=== PATIENT | female | born 1970 | race Two or more races ===

== ENCOUNTER 2020-01-05 16:03 | Emergency (ER) | payer OTHER, SELFPAY ==
--- NOTE | 2020-01-05 17:15 | ED.WOUNDLAC ---
HPI - Wound/Laceration General Chief Complaint: Wound/Laceration Stated Complaint: laceration Time Seen by Provider: 01/05/20 17:15 Source: patient Mode of arrival: ambulatory History of Present Illness HPI narrative: 49-year-old female presenting to ED complaining of laceration to left palm s/p cutting bananas around 1:00 p.m. today. Reports knife slipped. Tetanus out of date. Denies injury to other area, numbness, tingling, weakness, decreased ROM. Reports knife was brand new, not contaminated Onset (ago): hour(s) Related Data Allergies Allergy/AdvReac Type Severity Reaction Status Date / Time No Known Allergies Allergy Verified 12/15/19 09:08 Review of Systems Review of Systems: Constitutional: No Weight loss, No Fever, No Chills Musculoskeletal: No joint pain, No Myalgias, No Joint Swelling Skin:+laceration, No rash Neuro: No Weakness, No Numbness, No Paresthesias Yes all other systems are reviewed and are negative [facility] Social History Social History Advance Directives: No Advance Directives Information Provided: No Physical Exam Const: General: cooperative and healthy appearing Orientation/consciousness: patient oriented x3 Limitations: no limitations HENMT: Head: Yes normal to inspection Ears: hearing grossly normal bilaterally General nose exam: Normal external nose present Face and sinus: Yes normal facial exam Eyes: General: appearance normal, both eyes and all related structures EOM: EOMs intact bilaterally Neck: Neck: Yes normal visual inspection Resp: Effort & Inspection: normal respiratory effort Cardio: Peripheral pulses: radial pulses present Skin: Other: 1.5 cm superficial laceration noted to left palm at 5th digit MCP. No visible tendon/ligament. FROM intact to all digits, hand, and wrist. Finger to thumb opposition intact. Sensation intact to light touch. Cap refill WNL Neuro: General: patient oriented x3 Gait exam (Neuro): Normal gait present Extrem: General: Yes normal to inspection Procedures Laceration Laceration 1: Site: hand Side (If applicable): left Size (cm): 1.5 Description: linear Depth: simple, single layer Local Anesthetic: lidocaine 1% Amount of anesthesia used (mL): 2 Pre-repair: wound explored and irrigated extensively Skin layer closed with: nylon Size (cm): 5-0 Number of sutures: 4 Technique: simple, interrupted MDM - Wound/Laceration MDM Narrative Medical decision making narrative: Will suture laceration and update tetanus Discharge Plan Discharge Clinical Impression: Laceration Patient Disposition: Home, Self-Care Instructions: Laceration (ED) Additional Instructions: You had stitches placed today in the ED, YOU NEED TO RETURN IN 7-10 DAYS TO HAVE THEM TAKEN OUT Keep area dry and clean DO NOT GET WET FOR 24 HOURS AFTER 24 HOURS YOU MAY GET WET, BUT ONLY PAT DRY, DO NOT SCRUB IF AREA BEGINS TO LOOK INFECTED, IS RED, THERE IS DRAINAGE, YOU HAVE FEVER, OR PAIN BECOMES UNBEARABLE RETURN TO THE ED SOONER You can apply bacitracin or Neosporin on site at home Referrals: Dee Fuentes PA [Emergency Midlevel Provider] - 10 days (Return to the emergency department in 7-10 days to have your stitches taken out)
[2020-01-05] MEDS: Lidocaine HCl 1 % MPF 5 ML VIAL SUBCUT (18:08)
[2020-01-05 18:12] VITALS: BP 106/69; PULSE 95; RESP 16; TEMP 36.5; O2SAT 95; BMI 25.9
== END 2020-01-05 18:18 | disposition home or self-care (01) ==
PROVIDERS: Emergency Provider Internal Medicine; PCP Internal Medicine
DX: S61.412A Laceration without foreign body of left hand, initial encounter (principal); S60.512A Abrasion of left hand, initial encounter; M79.642 Pain in left hand; W26.0XXA Contact with knife, initial encounter; Y93.9 Activity, unspecified; Y92.000 Kitchen of unspecified non-institutional (private) residence as the place of occurrence of the external cause; Y99.9 Unspecified external cause status; Z23 Encounter for immunization
CPT/HCPCS: 12001; 90471; 99283; 99284

== ENCOUNTER 2020-01-15 08:30 | Emergency (ER) | payer OTHER, SELFPAY ==
[2020-01-15 09:05] VITALS: BP 106/81; PULSE 68; RESP 16; TEMP 36.3; O2SAT 98; BMI 17.2
--- NOTE | 2020-01-15 09:28 | ED_ITS ---
HPI - Wound/Laceration General Chief Complaint: Wound/Laceration Stated Complaint: suture removal Time Seen by Provider: 01/15/20 09:28 History of Present Illness HPI narrative: Patient presents for suture removal from left hand laceration that was sewed 1 week ago, no complaints no redness no swelling no discharge from wound no pain no fever Related Data Allergies Allergy/AdvReac Type Severity Reaction Status Date / Time No Known Allergies Allergy Verified 12/15/19 09:08 Review of Systems Review of Systems: No fever no chills no redness no swelling no numbness no weakness Yes all other systems are reviewed and are negative [facility] Past Medical History Source: nursing notes reviewed Medical History (Updated 01/15/20 @ 09:29 by NASH Rosales) Asthma Epilepsy Social History Social History Smoking Status: Never smoker Advance Directives: No Advance Directives Information Provided: Yes Physical Exam Vital Signs: Vital Signs: Last Vital Signs Temp 97.3 F 01/15/20 09:05 Pulse 68 01/15/20 09:05 Resp 16 01/15/20 09:05 BP 106/81 01/15/20 09:05 Pulse Ox 98 01/15/20 09:05 Body Mass Index 17.2 General appearance a no x3 comfortable no distress Neck is supple Respiratory no respiratory distress Extremities full range of motion x4 Left hand has sutures in place with no redness no swelling no discharge from the wound no sign of infection, neurovascular intact distal with full range of motion no tendon impairment Course Course Course Narrative: Sutures in left hand are removed with no problem no wound dehiscence Discharge Plan Discharge Clinical Impression: Encounter for removal of sutures Patient Disposition: Home, Self-Care Interventions: ED Discharge Assessment Last Done: 01/15/20 09:38 Discharge Date/Time: 01/15/20 09:38
== END 2020-01-15 09:38 | disposition home or self-care (01) ==
PROVIDERS: Emergency Provider Emergency Medicine; PCP Internal Medicine
DX: Z48.02 Encounter for removal of sutures (principal)
CPT/HCPCS: 99283

== ENCOUNTER 2020-07-05 10:28 | Outpatient (REF) | payer OTHER, SELFPAY ==
--- NOTE | ~2020-07-05 | MM_ITS ---
EXAMINATION: MM SCREENING DIGITAL BREAST TOMOSYNTHESIS, BILATERAL CLINICAL INFORMATION: Screening. Asymptomatic. The lifetime risk of breast cancer based on the Tyrer-Cuzick Model is 7%. COMPARISON: Mammography: 04/27/2019, 04/25/2018, 04/12/2017, 03/16/2016 TECHNIQUE: Digital breast tomosynthesis is performed in both the craniocaudal and mediolateral oblique views along with computer-aided detection (CAD). Synthesized 2D images are generated from the tomosynthesis. FINDINGS: The breasts are heterogeneously dense, which may obscure small masses (ACR BI-RADS breast composition Category c). There are no significant masses, abnormal calcifications, or other abnormalities. Parenchymal pattern is similar to prior studies. No developing density. Skin contours are smooth. No significant changes. MM/MM tomosynthesis screening BI IMPRESSION: No mammographic evidence of malignancy. ASSESSMENT: BI-RADS 1: Negative RECOMMENDATION: Routine annual mammography screening. This patient's information was entered into a reminder system with a target due date for their next mammogram.
== END 2020-07-05 10:29 | disposition home or self-care (01) ==
LOC: HO.MAMMO 10:28
PROVIDERS: Visit Provider Internal Medicine
DX: Z12.31 Encounter for screening mammogram for malignant neoplasm of breast (principal)
CPT/HCPCS: 77063; 77067

== ENCOUNTER → 2020-10-23 11:30 | Outpatient (BNV) | payer OTHER, SELFPAY | PROVIDERS: PCP Internal Medicine; Visit Provider Internal Medicine | DX: D56.9 Thalassemia, unspecified (principal) | CPT/HCPCS: 99213; 99214 ==

== ENCOUNTER 2021-01-01 08:30 | Emergency (ER) | payer OTHER, SELFPAY ==
[2021-01-01 09:20] VITALS: BP 99/50; PULSE 89; RESP 18; TEMP 36.1; O2SAT 99
[2021-01-01 09:25] VITALS: BMI 14.6
--- NOTE | 2021-01-01 09:29 | ED.SKABFB ---
HPI - Skin/Abscess/Foreign Bdy General Chief complaint: Skin/Abscess/Foreign Body Stated complaint: rash Time Seen by Provider: 01/01/21 09:24 Source: patient Mode of arrival: ambulatory Limitations: no limitations History of Present Illness HPI narrative: 50 Year old female past medical history significant for epilepsy, asthma presents to the emergency department with concerns of a rash to her neck x1 week progressively worsening. She states her daughter noticed the rash and stated she thought it was from her new soap that she started using, DOVE sensitive. She states that the rash has been larger, and more itchy over the past week. Denies fevers, chills, shortness of breath, chest pain, previous rashes, rashes anywhere else, pain to the area. MD complaint: rash Onset (ago): week(s) (1) Location: neck (left side of neck ) Severity: moderate Quality: pruritic Pain Consistency: other (not painful) Relieving factors: none Exacerbating factors: none Context: none Associated symptoms: denies other symptoms Treatments prior to arrival: other (hand lotion to the area w/o relief ) Related Data Home Medications Medication Instructions Recorded Confirmed levetiracetam 500 mg tablet 1 tab PO BID 10/23/20 10/23/20 Previous Rx's Medication Instructions Recorded ferrous sulfate 325 mg (65 mg 325 mg PO BID 90 Days #180 tab 11/06/20 iron) tablet hydrocortisone 2.5 % topical 1 appl TOPICAL QD-TID PRN #454 g 01/01/21 ointment Allergies Allergy/AdvReac Type Severity Reaction Status Date / Time No Known Allergies Allergy Verified 01/30/20 14:16 Review of Systems Review of Systems: Constitutional : No Weight loss, No Fever, No Chills, No Night Sweats, No Fatigue, No Malaise Cardiovascular : No Chest Pain, No SOB, No Dyspnea on Exertion, No Orthopnea, No Edema, No Palpitations Respiratory : No Cough, No Sputum, No Wheezing, No Smoke Exposure, No Dyspnea Gastrointestinal : No Nausea, No Vomiting, No Diarrhea, No Constipation, No abdominal Pain, No Hematochezia, No Melena Genitourinary : no irregular bleeding, No Dysuria, No Urinary Frequency, No Hematuria, No Urinary Incontinence, No Urgency, No Flank Pain, No Urinary Flow Changes, No Hesitancy Musculoskeletal : No joint pain, No Myalgias, No Joint Swelling Skin : No Skin Lesions, + rash Yes all other systems are reviewed and are negative [facility] Past Medical History Attestation statement: The following information was validated with the patient. Source: old records reviewed and nursing notes reviewed Medical History Anemia Asthma Epilepsy Surgical History No pertinent past surgical history Family History Family History Father Prostate cancer Mother Anemia Maternal Grandmother Diabetes Maternal Grandfather No problems noted. Paternal Grandmother No problems noted. Social History Social History Advance Directives: No Advance Directives Information Provided: No Patient : No Physical Exam Vital Signs: Vital Signs: Body Mass Index 14.6 vital signs have been reviewed as normal and appeared to be correct. Blood pressure normal. Heart rate normal. Respiration rate normal. Temperature normal. Oxygen saturation normal. Appearance: Alert. Oriented X3. No acute distress. Head: Normal external exam. Normocephalic. Neck: Normal inspection. Neck supple. FROM. No adenopathy. No meningeal signs. CVS: Normal heart rate and rhythm. Heart sound normal. No murmurs noted. Pulses normal throughout. Respiratory: No respiratory distress. Painless inspiration. Breath sounds normal. No wheezes/rales/rhonchi noted. Chest nontender. No accessory muscle usage noted or decreased air movement noted. Abdomen: Soft and nontender. Nondistended. No guarding. No rigidity. Bowel sounds normal in all 4 quadrants. No distention noted. No organomegaly noted. No visible injury noted. No rebound tenderness. Negative Rovsing sign. Negative obturator's sign. Negative psoas sign. Negative Malik sign. Back: No CVA tenderness. Full range of motion noted. Skin: Skin warm and dry. Normal skin color. Normal skin turgor. + dry [id number] area of dry skin with overlying excoriations likley eczema no calor or erythema MDM - Skin/Abscess/Foreign Bdy MDM Narrative Medical decision making narrative: 50-year-old female past medical history significant for epilepsy, asthma presents to the emergency department with 1 week of progressively worsening rash located to the left side of the neck. She states that this rash is itchy, it does not hurt. It is the 1st time she has had a rash like that. She states that her daughter thinks it started due to the initiation of new soap, Dove sensitive. Upon physical examination there is a large area at about 5 in x 6 in to the left posterior neck, that appeared to be dry, with overlying excoriations from the patient's itching. This appears to be eczema. The distribution of the rash does not appear to be shingles, patient also denies prodromal symptoms. No signs of infection. Plan at this time is to discharge the patient home with topical hydrocortisone cream to apply to the area daily. She has been educated on the diagnosis, and treatment. She has no questions. She is safe for discharge home, with PCP follow-up. Medical Records Attestation: I reviewed the patient's medical records. Discharge Plan Discharge Clinical Impression: Eczema Qualifiers: Eczema type: unspecified Qualified Code(s): L30.9 - Dermatitis, unspecified Patient Disposition: Home, Self-Care Instructions: Hydrocortisone (On the skin), Eczema (ED) Additional Instructions: Follow-up with your primary care provider. Use topical steroid cream as instructed. Instead of itching the area, you can apply a wet cloth to the area, to help decrease itchiness. Return to the emergency department with new or worsening symptoms Prescriptions: New hydrocortisone 2.5 % ointment 1 appl topical QD-TID PRN (Reason: skin irritation) Qty: 454 RF: 0 No Action ferrous sulfate 325 mg (65 mg iron) tablet 325 mg PO BID 90 Days Qty: 180 RF: 3 levetiracetam 500 mg tablet 1 tab PO BID RF: 0 Referrals: Yenny Stallings MD [Primary Care Provider] - 2 days Discharge Date/Time: 01/01/21 09:48 Print Language: Hungarian
== END 2021-01-01 09:48 | disposition home or self-care (01) ==
PROVIDERS: Emergency Provider Emergency Medicine; PCP Internal Medicine
DX: L30.9 Dermatitis, unspecified (principal); J45.909 Unspecified asthma, uncomplicated; G40.909 Epilepsy, unspecified, not intractable, without status epilepticus
CPT/HCPCS: 99283

== ENCOUNTER 2021-03-07 08:42 | Outpatient (REF) | payer OTHER, SELFPAY ==
[2021-03-07 09:09] LABS: Binax Internal Control QC Valid; Binax Now Covid-19 Ag Negative (Negative)
== END 2021-03-07 08:43 | disposition home or self-care (01) ==
LOC: HO.LAB 08:42
PROVIDERS: Visit Provider Internal Medicine
DX: Z20.822 Contact with and (suspected) exposure to COVID-19 (principal)
CPT/HCPCS: 36415; C9803

== ENCOUNTER 2021-07-07 09:33 | Outpatient (REF) | payer OTHER, SELFPAY ==
--- NOTE | ~2021-07-07 | MM_ITS ---
EXAMINATION: MM SCREENING DIGITAL BREAST TOMOSYNTHESIS, BILATERAL CLINICAL INFORMATION: Screening. Asymptomatic. The lifetime risk of breast cancer based on the Tyrer-Cuzick Model is 8%. COMPARISON: Mammography: 07/05/2020, 04/27/2019, 04/25/2018 TECHNIQUE: Digital breast tomosynthesis is performed in both the craniocaudal and mediolateral oblique views along with computer-aided detection (CAD). Synthesized 2D images are generated from the tomosynthesis. Additional right MLO view is provided. FINDINGS: The breasts are heterogeneously dense, which may obscure small masses (ACR BI-RADS breast composition Category c). Parenchymal pattern is similar to prior studies. There is no significant mass or architectural abnormality or abnormal calcifications. Some vascular calcifications again noted anterior 3:00 right breast. The axilla and skin contours are unremarkable. MM/MM tomosynthesis screening BI IMPRESSION: No mammographic evidence of malignancy. ASSESSMENT: BI-RADS 2: Benign RECOMMENDATION: Routine annual mammography screening. This patient's information was entered into a reminder system with a target due date for their next mammogram.
== END 2021-07-07 09:34 | disposition home or self-care (01) ==
LOC: HO.MAMMO 09:33
PROVIDERS: PCP Internal Medicine; Visit Provider Internal Medicine
DX: Z12.31 Encounter for screening mammogram for malignant neoplasm of breast (principal)
CPT/HCPCS: 77063; 77067

== ENCOUNTER 2021-09-12 11:37 | Outpatient (REF) | payer OTHER, SELFPAY ==
[2021-09-13 14:53] LABS: BV Int Neg Control Negative (Negative); BV Int Pos Control Positive (Positive)
[2021-09-13 16:51] LABS: CT PCR NOT DETECTED (Not Detect.); NG PCR NOT DETECTED (Not Detect.)
[2021-09-23 08:26] LABS: HPV 16 RNA NOT DETECTED (NOT DETECTED); HPV mRNA E6/E7 rflx Detected (Not Detected)
== END 2021-09-12 11:38 | disposition home or self-care (01) ==
LOC: HO.LAB 11:37
PROVIDERS: Visit Provider Advanced Practice Midwife
DX: Z01.419 Encounter for gynecological examination (general) (routine) without abnormal findings (principal); Z11.51 Encounter for screening for human papillomavirus (HPV); Z20.2 Contact with and (suspected) exposure to infections with a predominantly sexual mode of transmission
CPT/HCPCS: 87480; 87491; 87510; 87591; 87624; 87625; 87660; 88142

== ENCOUNTER 2021-10-23 10:32 | Outpatient (REF) | payer OTHER, SELFPAY | END 2021-10-23 10:33 | disposition home or self-care (01) | LOC: HO.LAB 10:32 | PROVIDERS: PCP Internal Medicine; Visit Provider Obstetrics & Gynecology | DX: R87.610 Atypical squamous cells of undetermined significance on cytologic smear of cervix (ASC-US) (principal); R87.810 Cervical high risk human papillomavirus (HPV) DNA test positive | CPT/HCPCS: 57454; 88305; 88342; 88360 ==

== ENCOUNTER → 2021-11-27 15:12 | Outpatient (BNVA) | payer OTHER, SELFPAY | PROVIDERS: Visit Provider Obstetrics & Gynecology | DX: N87.0 Mild cervical dysplasia (principal) | CPT/HCPCS: Q3014 ==

== ENCOUNTER 2022-07-13 08:30 | Outpatient (REF) | payer OTHER, SELFPAY ==
--- NOTE | ~2022-07-13 | MM_ITS ---
EXAMINATION: MM SCREENING DIGITAL BREAST TOMOSYNTHESIS, BILATERAL CLINICAL INFORMATION: Screening. Asymptomatic. The lifetime risk of breast cancer based on the Tyrer-Cuzick Model is 7%. COMPARISON: Mammography: 07/07/2021, 07/05/2020, 04/27/2019 TECHNIQUE: Digital breast tomosynthesis is performed in both the craniocaudal and mediolateral oblique views along with computer-aided detection (CAD). Synthesized 2D images are generated from the tomosynthesis. FINDINGS: The breasts are heterogeneously dense, which may obscure small masses (ACR BI-RADS breast composition Category c). There are no significant masses, abnormal calcifications, or other abnormalities. No architectural abnormality or developing density or significant change from prior studies. There are incidental focal vascular calcifications periareolar 3:00 right breast. The axilla and skin contours are unremarkable. MM/MM tomosynthesis screening BI IMPRESSION: No mammographic evidence of malignancy. ASSESSMENT: BI-RADS 2: Benign RECOMMENDATION: Routine annual mammography screening. This patient's information was entered into a reminder system with a target due date for their next mammogram.
== END 2022-07-13 08:31 | disposition home or self-care (01) ==
LOC: HO.MAMMO 08:30
PROVIDERS: PCP Internal Medicine; Visit Provider Internal Medicine
DX: Z12.31 Encounter for screening mammogram for malignant neoplasm of breast (principal)
CPT/HCPCS: 77063; 77067

== ENCOUNTER 2022-09-23 09:35 | Outpatient (REF) | payer OTHER, SELFPAY ==
[2022-10-01 08:43] LABS: HPV 16 RNA NOT DETECTED (NOT DETECTED); HPV mRNA E6/E7 rflx Detected (Not Detected)
== END 2022-09-23 09:36 | disposition home or self-care (01) ==
LOC: HO.LNP 09:35
PROVIDERS: PCP Internal Medicine; Visit Provider Obstetrics & Gynecology
DX: Z01.419 Encounter for gynecological examination (general) (routine) without abnormal findings (principal); Z11.51 Encounter for screening for human papillomavirus (HPV)
CPT/HCPCS: 87624; 87625; 88142

== ENCOUNTER 2022-09-23 09:35 | Outpatient (AMB) | payer OTHER, SELFPAY ==
[2022-09-23 09:40] VITALS: BP 102/60; BMI 17.8
--- NOTE | 2022-09-23 09:40 | MHC.OFFVIS ---
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 No complaints. Last Pap/HPV was ascus/HPV 18 positive, followed by colpo/biopsy/ECC which showed SHIN 1 Last Mammogram was BI-RADS 2 in 07/21 No previous screening Colonoscopy [facility] Medical History (Updated 09/23/22 @ 09:51 by Tomi Lozano MD) Anemia Asthma Dysplasia of cervix, low grade (SHIN 1) Epilepsy Surgical History No pertinent past surgical history Family History Father Prostate cancer Mother Anemia Maternal Grandmother Diabetes Maternal Grandfather No problems noted. Paternal Grandmother No problems noted. Social History Household Members: Children Housing: Apartment Alcohol intake: never Patient Tobacco Use Status: Never used Tobacco Second Hand Smoke Exposure: No service: No Current occupational status: disabled Cognitive needs: No Hearing needs: No Vision needs: Yes Female Reproductive History Menstrual Age of Menarche: 15 control method: none Total pregnancies: 1 Full term: 1 Number of Living Children: 1 Date of last pap smear: 09/16/21 (ASCUS +HPV) History of abnormal pap smear: Yes Date of Mammogram: 07/13/22 Review of Systems Const All systems reviewed & are unremarkable except as noted in HPI and below Card Reports as per HPI Resp Reports as per HPI GI Reports as per HPI and Reports no additional complaints Reports as per HPI Physical Exam Vital Signs: Last Vital Signs BP 102/60 09/23/22 09:40 BMI result Body Mass Index 17.8 Const General: cooperative, healthy appearing and comfortable Chest Chest palpation & inspection: normal inspection of the chest and normal palpation of entire chest wall Breast/axilla inspection: normal inspection of the breasts and normal inspection of the axillae Breast/axilla palpation: normal palpation of the breasts, normal palpation of the axillae and no axillary lymphadenopathy Resp Effort & Inspection: normal respiratory effort Auscultation: clear to auscultation bilaterally Percussion: percussion normal Cardio Palpation: normal PMI Rate: regular rate Rhythm: regular rhythm Heart sounds: no murmurs and no rubs Peripheral pulses: Peripheral pulses 2+ throughout GI Inspection: Yes normal to inspection Palpation (GI): Soft to palpation, nontender, no guarding, not rigid and No hepatosplenomegaly present Percussion: Yes normal to percussion Auscultation: normal bowel sounds Rectal Exam - Female: deferred General: Yes bladder normal to palpation External Female Exam: No lesion Speculum Exam - Vagina: normal appearance of the vagina, normal palpation, normal vaginal discharge and not erythematous Speculum Exam - Cervix: normal appearance of the cervix and normal palpation Bimanual exam- vagina & uterus: normal bimanual exam, normal palpation, uterine size normal, bladder normal to palpation, consistency normal and normal palpation Bimanual Exam- Adnexa, other: normal adnexae, no masses and no tenderness Assessment & Plan Assessment & Plan (1) Well woman exam: Comment: SHIN 1 in 09/19 Code(s): Z01.419 - Encounter for gynecological examination (general) (routine) without abnormal findings Plan: Co testing done. Counseled the patient about the recommended dietary allowance of 1200 mg of Calcium & 600 IU of vitamin D. Instructions given the patient to schedule her next screening Mammogram in 07/22, the patient was referred to GI for screening colonoscopy . The patient was instructed to perform monthly self-breast exams and schedule annual exam in a year; all questions answered and the patient verbalized understanding. Orders: Referrals Gastroenterology Referral Z12.11 - Encounter for screening for malignant neoplasm of colon Coding Level of Care Code Est Pt Prev Care 40-64y(09330) Diagnoses Well woman exam Z01.419
== END 2022-09-23 11:15 | disposition home or self-care (01) ==
LOC: HO.HWS 09:35
PROVIDERS: PCP Internal Medicine; Visit Provider Obstetrics & Gynecology
DX: Z01.419 Encounter for gynecological examination (general) (routine) without abnormal findings (principal)
CPT/HCPCS: 99396

== ENCOUNTER 2022-11-24 09:36 | Outpatient (AMB) | payer OTHER, SELFPAY ==
--- NOTE | 2022-11-24 09:50 | MHC.OFFVIS ---
Intake Vital Signs 11/24/22 10:06 Height 4 ft 11 in Weight 88 lb 2.958 oz BMI 17.8 BP 110/72 Intake Visit Reasons: Colposcopy Accounts Payables Clerk Required: Yes Accounts Payables Clerk Language: Suede Brusher Name: Bina WINTERS Information Interpreted: non-clinical & clinical Foreign Language Instructor: Foreign Language Instructor Present (Bina WINTERS) Accompanied by: Self / Same As Patient Allergies No Known Allergies Allergy (Verified 11/24/22 10:07) Post menopausal: Yes [facility] Medical History (Updated 11/10/22 @ 11:50 by [place]) Dysplasia of cervix, low grade (SHIN 1) Anemia Epilepsy Asthma Surgical History No pertinent past surgical history Family History Father Prostate cancer Mother Anemia Maternal Grandmother Diabetes Maternal Grandfather No problems noted. Paternal Grandmother No problems noted. Social History Household Members: Children Housing: Apartment Alcohol intake: never Patient Tobacco Use Status: Never used Tobacco Second Hand Smoke Exposure: No service: No Current occupational status: disabled Cognitive needs: No Hearing needs: No Vision needs: Yes Female Reproductive History Menstrual Age of Menarche: 15 Physical Exam Vital Signs: Last Vital Signs BP 110/72 11/24/22 10:06 BMI result Body Mass Index 17.8 Office Procedures Colposcopy Before the procedure was started discussed with the patient the procedure, alternatives & all the risks associated with the procedure (bleeding, infection, injury to vagina, bladder, vessels, possible need for transfusion with all its risks) then patient signed the consent Pap smear = ascus/HPV positive 18/45 Speculum inserted, acetic acid used Colposcopy done Transformation zone seen, acetowhite lesions identified at 5+6+11+12 o?clock, cervical biopsies taken from 5+6+11+12 o?clock, ECC done afterwards. Vaginoscopy of the upper vagina showed no evidence of any aceto-white lesions Monsel solution used for hemostasis. The patient tolerated well . At the end the patient was instructed to call if temp>100.4, abdominal pain, n/v, bleeding; The patient was given the following instructions: nothing per vagina, no intercourse or bath tub use. All questions answered the patient verbalized understanding. Instructed the patient to make an appointment in 2 weeks for follow-up This note was generated with a voice recognition program. Some errors may have been overlooked during the review of this note. Sometimes these errors may affect the content or meaning of a given sentence. [id number] of cervix including upper vagina with biopsy and ECC Procedure code (CPT) selection complete Assessment & Plan Assessment & Plan (1) ASCUS with positive high risk HPV cervical: Code(s): R87.610 - Atypical squamous cells of undetermined significance on cytologic smear of cervix (ASC-US); R87.810 - Cervical high risk human papillomavirus (HPV) DNA test positive Orders: Orders AMB Colposcopy Today R87.610 - Atypical squamous cells of undetermined significance on cytologic smear of cervix (ASC-US), R87.810 - Cervical high risk human papillomavirus (HPV) DNA test positive Coding Level of Care Code Procedure Only Diagnoses ASCUS with positive high risk HPV cervical R87.610; R87.810 CPT Codes Colposcopy - CPT: 23823-Umgxaadvj of cervix including upper vagina with biopsy and ECC ([id number])
[2022-11-24 10:06] VITALS: BP 110/72; BMI 17.8
== END 2022-11-24 11:28 | disposition home or self-care (01) ==
LOC: HO.HWS 09:36
PROVIDERS: PCP Internal Medicine; Visit Provider Obstetrics & Gynecology
DX: R87.610 Atypical squamous cells of undetermined significance on cytologic smear of cervix (ASC-US) (principal); R87.810 Cervical high risk human papillomavirus (HPV) DNA test positive
CPT/HCPCS: 57454

== ENCOUNTER 2022-11-24 09:36 | Outpatient (REF) | payer OTHER, SELFPAY | END 2022-11-24 09:37 | disposition home or self-care (01) | LOC: HO.LNP 09:36 | PROVIDERS: PCP Internal Medicine; Visit Provider Obstetrics & Gynecology | DX: R87.610 Atypical squamous cells of undetermined significance on cytologic smear of cervix (ASC-US) (principal); R87.810 Cervical high risk human papillomavirus (HPV) DNA test positive | CPT/HCPCS: 57454; 88305; 88342; 88360 ==

== ENCOUNTER 2023-05-13 11:01 | Outpatient (AMB) | payer OTHER, SELFPAY ==
--- NOTE | 2023-05-13 11:01 | A.OFFVIS_ITS ---
Intake Intake Visit Reasons: colpo results Allergies No Known Allergies Allergy (Verified 11/24/22 10:07) HPI HPI Comments History of Present Illness Details The patient is scheduled a telehealth visit after multiple no-show appointment and rescheduling for post colpo for follow-up. The patient is doing well with no complaints. The pathology showed the following: A. Endocervix, curettage: Detached fragments of endocervical glandular and squamous epithelium with acute and chronic inflammation and reactive changes; negative for dysplasia. B. Cervix, 5:00, biopsy: Squamous mucosa with follicular cervicitis, atrophy, and reactive changes; negative for dysplasia; no endocervical glandular component present. C. Cervix, 6:00, biopsy: Squamous mucosa with follicular cervicitis, biopsy site changes, atrophy, and reactive changes; negative for dysplasia; no definitive endocervical glandular component identified. D. Cervix, 11:00, biopsy: Detached fragments of squamous epithelium with reactive changes; negative for dysplasia; no endocervical glandular component present. E. Cervix, 12:00, biopsy: Squamous mucosa with follicular cervicitis, acute inflammation, atrophy, and focal atypia suspicious for dysplasia; no definitive endocervical glandular component identified Comment: Follow-up is warranted. The patient's previous atypical Pap test ([id number]) concurs with the current biopsy [facility] Medical History Dysplasia of cervix, low grade (SHIN 1) Anemia Epilepsy Asthma Surgical History No pertinent past surgical history Family History Father Prostate cancer Mother Anemia Maternal Grandmother Diabetes Maternal Grandfather No problems noted. Paternal Grandmother No problems noted. Social History Household Members: Children Housing: Apartment Alcohol intake: never Patient Tobacco Use Status: Never used Tobacco Second Hand Smoke Exposure: No service: No Current occupational status: disabled Cognitive needs: No Hearing needs: No Vision needs: Yes Female Reproductive History Menstrual Age of Menarche: 15 Review of Systems Const All systems reviewed & are unremarkable except as noted in HPI and below Reports as per HPI and Reports no additional complaints GI Reports no additional complaints Reports no additional complaints Assessment & Plan Assessment & Plan (1) ASCUS with positive high risk HPV cervical: Comment: Biopsy suspicious for dysplasia Code(s): R87.610 - Atypical squamous cells of undetermined significance on cytologic smear of cervix (ASC-US); R87.810 - Cervical high risk human papillomavirus (HPV) DNA test positive Plan: Discussed with the patient the results the colpo/ biopsy /ECC, 12:00 o'clock biopsy showing focal atypia suspicious for dysplasia, recommended repeat co testing/colposcopy. Discussed with the patient the sensitivity, specificity, false-positive and false-negative rate of biopsies detecting cervical dysplasia/malignancy, the indication for repeat screening/diagnostic test, co testing/colposcopy/biopsy. Instructions given the patient to schedule an appointment RICHARD for co testing/colposcopy. All questions answered, the patient verbalized understanding and agreed with the plan. I spent a total of 20 minutes reviewing the chart, talking to the patient via vi bree and documenting in the medical record. Telehealth Telehealth Location of provider rendering services: practice address Location of patient: address on file Patient Identification confirmed using: Name, : Yes Telehealth method: voice only Patient verbally consented to treatment: Yes Patient verbally consented to billing insurance company: Yes Patient informed of any privacy concerns related to visit: Yes Coding Level of Care Code Tele Est Pt Level 1 (90857) Diagnoses ASCUS with positive high risk HPV cervical R87.610; R87.810
== END 2023-05-13 15:10 | disposition home or self-care (01) ==
PROVIDERS: PCP Internal Medicine; Visit Provider Obstetrics & Gynecology
DX: R87.610 Atypical squamous cells of undetermined significance on cytologic smear of cervix (ASC-US) (principal); R87.810 Cervical high risk human papillomavirus (HPV) DNA test positive
CPT/HCPCS: 99211

== ENCOUNTER → 2023-05-13 11:01 | Outpatient (BNVA) | payer MEDICARE, MEDICAID, SELFPAY | PROVIDERS: PCP Internal Medicine; Visit Provider Obstetrics & Gynecology ==

== ENCOUNTER 2023-05-17 08:30 | Outpatient (AMB) | payer OTHER, SELFPAY ==
--- NOTE | 2023-05-17 08:45 | A.OFFVIS_ITS ---
Intake Vital Signs 05/17/23 08:51 Height 4 ft 11 in Weight 88 lb 2.958 oz BMI 17.8 BP 98/60 Intake Visit Reasons: Colposcopy/pap Legal Associate Required: Yes Legal Associate Language: Elementary Librarian Name: Bina WINTERS Information Interpreted: non-clinical & clinical Manager Audio: Manager Audio Present (Bina IWNTERS) Accompanied by: Self / Same As Patient Allergies No Known Allergies Allergy (Verified 11/24/22 10:07) HPI HPI Comments History of Present Illness Details Presenting for repeat co testing/colposcopy. On 11/21 co testing showed ascus HPV E6/E7 positive, HPV 18/45 positive and HPV 16 negative. Colposcopy/biopsy/ECC showed 12:00 o'clock focus suspicious for dysplasia otherwise negative [facility] Medical History Dysplasia of cervix, low grade (SHIN 1) Anemia Epilepsy Asthma Surgical History No pertinent past surgical history Family History Father Prostate cancer Mother Anemia Maternal Grandmother Diabetes Maternal Grandfather No problems noted. Paternal Grandmother No problems noted. Social History Household Members: Children Housing: Apartment Alcohol intake: never Patient Tobacco Use Status: Never used Tobacco Second Hand Smoke Exposure: No service: No Current occupational status: disabled Cognitive needs: No Hearing needs: No Vision needs: Yes Female Reproductive History Menstrual Age of Menarche: 15 Office Procedures Colposcopy Before the procedure was started discussed with the patient the procedure, alternatives & all the risks associated with the procedure (bleeding, infection, injury to vagina, bladder, vessels, possible need for transfusion with all its risks) then patient signed the consent Pap smear 11/21 = ascus/HPV E6/E7, HPV 18/46 positive, HPV 16 negative Co testing repeat Speculum inserted, acetic acid used Colposcopy done Transformation zone seen, acetowhite lesions identified at 11+12+6+9 o?clock, cervical biopsies taken from 11+12+6+9 o?clock, ECC done afterwards. Vaginoscopy of the upper vagina showed no evidence of any aceto-white lesions Monsel solution used for hemostasis. The patient tolerated well . At the end the patient was instructed to call if temp>100.4, abdominal pain, n/v, bleeding; The patient was given the following instructions: nothing per vagina, no intercourse or bath tub use. All questions answered the patient verbalized understanding. Instructed the patient to make an appointment in 2 weeks for follow-up This note was generated with a voice recognition program. Some errors may have been overlooked during the review of this note. Sometimes these errors may affect the content or meaning of a given sentence. [id number] of cervix including upper vagina with biopsy and ECC Procedure code (CPT) selection complete Assessment & Plan Assessment & Plan (1) ASCUS with positive high risk HPV cervical: Comment: Biopsy suspicious for dysplasia 11/21 Code(s): R87.610 - Atypical squamous cells of undetermined significance on cytologic smear of cervix (ASC-US); R87.810 - Cervical high risk human papillomavirus (HPV) DNA test positive Plan: Co testing repeated, colpo syncope done, see procedure note Orders: Orders AMB Colposcopy Today R87.610 - Atypical squamous cells of undetermined significance on cytologic smear of cervix (ASC-US), R87.810 - Cervical high risk human papillomavirus (HPV) DNA test positive Coding Level of Care Code Procedure Only Diagnoses ASCUS with positive high risk HPV cervical R87.610; R87.810 CPT Codes Colposcopy - CPT: 95861-[place]phnon of cervix including upper vagina with biopsy and ECC ([id number])
[2023-05-17 08:51] VITALS: BP 98/60; BMI 17.8
== END 2023-05-17 09:13 | disposition home or self-care (01) ==
LOC: HO.HWS 08:30
PROVIDERS: PCP Internal Medicine; Visit Provider Obstetrics & Gynecology
DX: R87.610 Atypical squamous cells of undetermined significance on cytologic smear of cervix (ASC-US) (principal); R87.810 Cervical high risk human papillomavirus (HPV) DNA test positive
CPT/HCPCS: 57454

== ENCOUNTER 2023-05-17 08:30 | Outpatient (REF) | payer OTHER, SELFPAY ==
[2023-05-22 19:44] LABS: HPV 16 RNA NOT DETECTED (NOT DETECTED); HPV mRNA E6/E7 rflx Detected (Not Detected)
== END 2023-05-17 08:31 | disposition home or self-care (01) ==
LOC: HO.LNP 08:30
PROVIDERS: PCP Internal Medicine; Visit Provider Obstetrics & Gynecology
DX: Z01.419 Encounter for gynecological examination (general) (routine) without abnormal findings (principal); R87.610 Atypical squamous cells of undetermined significance on cytologic smear of cervix (ASC-US); R87.810 Cervical high risk human papillomavirus (HPV) DNA test positive
CPT/HCPCS: 57454; 87624; 87625; 88142; 88300; 88305

== ENCOUNTER 2023-08-05 10:34 | Outpatient (AMB) | payer OTHER, SELFPAY ==
--- NOTE | 2023-08-05 10:35 | MHC.OFFVIS ---
Intake Visit Reasons: colpo results Allergies No Known Allergies Allergy (Verified 07/09/23 08:55) HPI Comments Details: The patient is scheduled tele health visit for follow-up post colpo/co testing. Co testing came back as ascus/HPV E6/E7 positive, HPV 16/18/45 negative. Colpo/biopsy/ECC pathology showed the following: A. Endocervix, curettage: Small fragment of inflamed endocervical and squamous mucosa with changes consistent with prior procedure; no atypia identified. B. Cervix, 3 o'clock, biopsy: No tissue present. C. Cervix, 6 o'clock, biopsy: Fragments of inflamed squamous mucosa with thermal artifact and changes consistent with prior procedure; no endocervical epithelium identified; no atypia identified. D. Cervix, 9 o'clock, biopsy: Mildly inflamed cervical stroma with hemosiderin deposition; no epithelium identified. E. Cervix, 11 o'clock, biopsy: Mildly inflamed cervical stroma with hemosiderin deposition; no epithelium identified. F. Cervix, 12 o'clock, biopsy: - Squamous epithelium within normal limits; no endocervical epithelium identified. - Mildly inflamed cervical stroma with hemosiderin deposition; no epithelium identified. [facility] Medical History Dysplasia of cervix, low grade (SHIN 1) Anemia Epilepsy Asthma Surgical History No pertinent past surgical history Family History Father Prostate cancer Mother Anemia Maternal Grandmother Diabetes Maternal Grandfather No problems noted. Paternal Grandmother No problems noted. Social History Household Members: Children Housing: Apartment Alcohol intake: never Patient Tobacco Use Status: Never used Tobacco Second Hand Smoke Exposure: No service: No Current occupational status: disabled Cognitive needs: No Hearing needs: No Vision needs: Yes Female Reproductive History Menstrual Age of Menarche: 15 Review of Systems Const All systems reviewed & are unremarkable except as noted in HPI and below Reports as per HPI and Reports no additional complaints GI Reports no additional complaints Reports no additional complaints Telehealth Telehealth Telehealth Platform: Telephone Location of provider rendering services: practice address Location of patient: address on file Patient Identification confirmed using: Name, : Yes Telehealth method: voice only Patient verbally consented to treatment: Yes Patient verbally consented to billing insurance company: Yes Patient informed of any privacy concerns related to visit: Yes Assessment & Plan Assessment & Plan (1) ASCUS with positive high risk HPV cervical: Code(s): R87.610 - Atypical squamous cells of undetermined significance on cytologic smear of cervix (ASC-US); R87.810 - Cervical high risk human papillomavirus (HPV) DNA test positive Category: Medical Plan: Discussed with the patient the result of her abnormal pap, its significance, risk of progression, persistence, and regression. the false positive/negative rate of a Pap smear as a screening test in detecting cervical cancer and the results of the diagnostic test -colposcopy, biopsy, endocervical curettage, all negative with 03:00 o'clock biopsy showing no tissues present, recommended repeat 03:00 o'clock cervical biopsy/colpo. Instructions given the patient to schedule an appointment for repeat colpo/03:00 o'clock cervical biopsy.The patient verbalized understanding and agreed with the plan, all questions answered. I spent a total of 20 minutes reviewing the chart, talking to the patient via phone and documenting in the medical record. Coding Level of Care Code Tele Est Pt Level 1 (50699) Diagnoses ASCUS with positive high risk HPV cervical R87.610; R87.810
== END 2023-08-05 15:20 | disposition home or self-care (01) ==
LOC: HO.HWS 10:34
PROVIDERS: PCP Internal Medicine; Visit Provider Obstetrics & Gynecology
DX: R87.610 Atypical squamous cells of undetermined significance on cytologic smear of cervix (ASC-US) (principal); R87.810 Cervical high risk human papillomavirus (HPV) DNA test positive
CPT/HCPCS: 99211

== ENCOUNTER → 2023-08-05 10:34 | Outpatient (BNVA) | payer OTHER, SELFPAY | PROVIDERS: PCP Internal Medicine; Visit Provider Obstetrics & Gynecology ==

== ENCOUNTER 2023-09-22 08:30 | Outpatient (REF) | payer OTHER, SELFPAY | END 2023-09-22 08:31 | disposition home or self-care (01) | LOC: HO.MAMMO 08:30 | PROVIDERS: PCP Internal Medicine; Visit Provider Internal Medicine | DX: Z12.31 Encounter for screening mammogram for malignant neoplasm of breast (principal) | CPT/HCPCS: 77063; 77067 ==

== ENCOUNTER → 2023-09-22 09:30 | Outpatient (BNV) | payer OTHER, SELFPAY | PROVIDERS: PCP Internal Medicine; Visit Provider Radiology Diagnostic Radiology | DX: Z12.31 Encounter for screening mammogram for malignant neoplasm of breast (principal) | CPT/HCPCS: 77063; 77067 ==

== ENCOUNTER 2023-10-06 09:31 | Outpatient (AMB) | payer OTHER, SELFPAY ==
[2023-10-06 09:54] VITALS: BP 102/60; BMI 18.3
--- NOTE | 2023-10-06 09:54 | A.OFFVIS_ITS ---
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 Private Household Worker Required: Yes Private Household Worker Language: Cq Developer Services: Private Household Worker Present (in person) Information Interpreted: non-clinical & clinical Plate Cleaner: Plate Cleaner Present (Bina WINTERS) Accompanied by: Daughter Allergies No Known Allergies Allergy (Verified 10/06/23 09:55) Post menopausal: Yes HPI Comments Details: Presenting for repeat colpo/biopsy at 03:00 o'clock for ascus HPV E6 E7 po sitive, HPV 16/18/45 negative, last colpo biopsy at 03:00 o'clock there were no tissues present on pathology report [facility] Medical History Dysplasia of cervix, low grade (SHIN 1) Anemia Epilepsy Asthma Surgical History No pertinent past surgical history Family History Father Prostate cancer Mother Anemia Maternal Grandmother Diabetes Maternal Grandfather No problems noted. Paternal Grandmother No problems noted. Social History Household Members: Children Housing: Apartment Alcohol intake: never Patient Tobacco Use Status: Never used Tobacco Second Hand Smoke Exposure: No service: No Current occupational status: disabled Cognitive needs: No Hearing needs: No Vision needs: Yes Female Reproductive History Menstrual Age of Menarche: 15 Menopause type: natural Total pregnancies: 1 Full term: 1 Number of Living Children: 1 Date of last pap smear: 05/18/23 History of abnormal pap smear: Yes (Ascus, HPV +) Date of Mammogram: 09/22/23 Physical Exam Vital Signs: Last Vital Signs BP 102/60 10/06/23 09:54 BMI result Body Mass Index 18.3 Assessment & Plan Assessment & Plan (1) ASCUS with positive high risk HPV cervical: Comment: 3 o'clock cerv bx no tissues present Code(s): R87.610 - Atypical squamous cells of undetermined significance on cytologic smear of cervix (ASC-US); R87.810 - Cervical high risk human papillomavirus (HPV) DNA test positive Category: Medical Plan: Colpo and 03:00 o'clock cerv biopsy was done Coding Level of Care Code Est Pt Level 3 (30711) Diagnoses ASCUS with positive high risk HPV cervical R87.610; R87.810
== END 2023-10-06 10:28 | disposition home or self-care (01) ==
PROVIDERS: PCP Internal Medicine; Visit Provider Obstetrics & Gynecology
DX: R87.610 Atypical squamous cells of undetermined significance on cytologic smear of cervix (ASC-US) (principal); R87.810 Cervical high risk human papillomavirus (HPV) DNA test positive
CPT/HCPCS: 99213

== ENCOUNTER 2023-10-06 09:31 | Outpatient (REF) | payer OTHER, SELFPAY | END 2023-10-06 09:32 | disposition home or self-care (01) | LOC: HO.LNP 09:31 | PROVIDERS: PCP Internal Medicine; Visit Provider Obstetrics & Gynecology | DX: R87.610 Atypical squamous cells of undetermined significance on cytologic smear of cervix (ASC-US) (principal); R87.810 Cervical high risk human papillomavirus (HPV) DNA test positive | CPT/HCPCS: 88305; 99212 ==

== ENCOUNTER 2023-10-20 09:30 | Outpatient (AMB) | payer OTHER, SELFPAY ==
--- NOTE | 2023-10-20 09:46 | A.OFFPC_ITS ---
Vital Signs 10/20/23 09:49 Height 4 ft 11 in Weight 90 lb 6 oz BMI 18.3 BP 96/60 Blood Pressure Location Lt brachial Position Sitting Intake Visit Reasons: Hands issues Intake Note: Patient here c/o bilateral hand pain more on right Sawmill Or Timber Yard Worker Required: No Accompanied by: Daughter Allergies No Known Allergies Allergy (Verified 10/20/23 10:23) Medication List - Last Reconciled 10/20/23 by Yenny Salgado MD amitriptyline 2 tabs PO BEDTIME levetiracetam 500 mg PO BID Tobacco use date assessed: 10/20/23 Dental Screening Dental Screen Date: 10/20/23 Did you have a dental visit in the last 12 months?: No Did you have a dental problem in the last 6 months where you did not have access to dental care?: No Was dental information given to patient?: Patient has dentist HPI HPI Comments History of Present Illness Details This is a 53-year-old female with thalassemia and epilepsy that comes today accompanied by daughter complaining of right hand pain, weakness and paresthesia that started few months ago. She said every object felt of the right hand. She started having the same symptoms in the left hand but not as frequent. She would like to see ortho and had an x-ray. Thalassemia is follow by Hematology-Oncology and epilepsy is follow by Neurology. She denies any active bleeding. No chest pain or shortness on breath. [facility] Medical History (Updated 10/20/23 @ 10:37 by Yenny Salgado MD) Dysplasia of cervix, low grade (SHIN 1) Anemia Epilepsy Asthma Surgical History No pertinent past surgical history Family History Father Prostate cancer Mother Anemia Maternal Grandmother Diabetes Maternal Grandfather No problems noted. Paternal Grandmother No problems noted. Social History Household Members: Children Housing: Apartment Alcohol intake: never Patient Tobacco Use Status: Never used Tobacco e-Cigarette/Vaping Use: Never Used Second Hand Smoke Exposure: No service: No Current occupational status: disabled Cognitive needs: No Hearing needs: No Vision needs: Yes Female Reproductive History Menstrual Age of Menarche: 15 Questionnaire PHQ-9 Over the last 2 weeks, how often have you been bothered by any of the following problems? 1. Little interest or pleasure in doing things: not at all 2. Feeling down, depressed, or hopeless: not at all 3. Trouble falling or staying asleep, or sleeping too much: not at all 4. Feeling tired or having little energy: not at all 5. Poor appetite or overeating: not at all 6. Feeling bad about yourself - or that you are a failure or have let yourself or your family down: not at all 7. Trouble concentrating on things, such as reading the newspaper or watching television: not at all 8. Moving or speaking so slowly that other people could have noticed. Or the opposite - being so fidgety or restless that you have been moving around a lot more than usual: not at all 9. Thoughts that you would be better off or of hurting yourself in some way: not at all Total score: 0 Depression Screening Interpretation: Negative Depression Screening Done: Yes 64753 - PHQ-9 Billing: Yes Source: Developed by Drs. Ulysses Tobar, Sandhya Anthony, Louie Vogel and colleagues, with an educational gareth from [employer]. Thrive Questionnaire Date Thrive assessed: 10/20/23 I am a: Patient What is your living situation today?: I have a steady place to live Within the past 12 months, did the food you bought not last and you didn't have the money to get more?: Never true Within the past 12 months, did you worry whether your food would run out before you got money to buy more?: Never true Do you have trouble paying for medicines?: No Do you have trouble getting transportation to medical appointments?: No Do you have trouble paying your heating and electricity bill?: No Do you have trouble taking care of your child, family member or friend?: No Do you have trouble with day-to-day activities such as bathing, preparing meals, shopping, managing finances, etc.?: No Are you currently unemployed and looking for a job?: No Are you interested in more education?: No Please select the resources that you would like help with: None Currently or been in a relationship where the following occur: No concerns reported THRIVE Score: 0 AUDIT C Alcohol Use Questionnaire (AUDIT-C) 1. How often do you have a drink containing alcohol?: Never Total Score: 0 Score Reviewed/Action Taken: No ELMER-7 AMB Questionnaire ELMER-7 Date ELMER - 7 assessed: 10/20/23 Feeling nervous, anxious, or on edge: 0 = Not at all Not being able to stop or control worryin = Not at all Worrying too much about different things: 0 = Not at all Trouble relaxin = Not at all Being so restless that it is hard to sit still: 0 = Not at all Becoming easily annoyed or irritable: 0 = Not at all Feeling afraid as if something awful might happen: 0 = Not at all Total ELMER-7 score (0-4 normal; 5-9 mild; 10-14 moderate; 15-21 severe): 0 Source: Developed by Drs. Ulysses Tobar, Sandhya Anthony, Louie Vogel and colleagues, with an educational gareth from [employer]. ELMER-7 Assessment Billing ELMER-7 Assessment Tool: ELMER-7 Assessment 43323 Review of Systems Const All systems reviewed & are unremarkable except as noted in HPI and below Card Denies chest pain at rest, Denies chest pain with activity, Denies edema, Denies irregular heart rhythm, Denies claudication, Denies dyspnea, Denies dyspnea on exertion, Denies orthopnea, Denies paroxysmal nocturnal dyspnea and Denies slow heart rate Resp Denies cough, Denies dyspnea and Denies dyspnea on exertion GI Denies abdominal pain, Denies change in bowel habits, Denies excessive flatus, Denies nausea and Denies vomiting Denies urinary incontinence, Denies urinary hesitancy and Denies urinary urgency Musc Reports arthralgias and Reports muscle weakness Physical exam (Primary Care) Vital Signs: Last Vital Signs BP 96/60 10/20/23 09:49 BMI result Body Mass Index 18.3 Tobacco/Smoking Status: Tobacco use Status Tobacco use date assessed 10/20/23 10/20/23 09:53 Patient Tobacco Use Status Never used Tobacco 10/20/23 09:47 e-Cigarette/Vaping Use Never Used 10/20/23 09:53 PHQ-9: PHQ-9 Score PHQ-9: Total score 0 10/20/23 09:57 Depression Screening Interpretation: Negative Thrive Assessment: Date of Thrive Assessment Date Thrive assessed 10/20/23 10/20/23 09:57 Currently or been in a relationship where the following occur: No concerns reported Resp Effort & Inspection: normal respiratory effort Auscultation: clear to auscultation bilaterally Cardio Jugular venous distension: no JVD Rate: regular rate Rhythm: regular rhythm Heart sounds: S1 normal heart sound present and S2 normal heart sound present Extrem General: Yes full ROM Assessment and Plan Assessment & Plan (1) Right hand pain: Code(s): M79.641 - Pain in right hand Plan: X-ray ordered. (2) Paresthesias in right hand: Code(s): R20.2 - Paresthesia of skin Plan: Nerve conduction study ordered. (3) Thalassanemia: Code(s): D56.9 - Thalassemia, unspecified Qualifiers: Thalassemia type: unspecified type Qualified Code(s): D56.9 - Thalassemia, unspecified Plan: Follow by Hematology-Oncology. (4) Epilepsy: Code(s): G40.909 - Epilepsy, unspecified, not intractable, without status epilepticus Qualifiers: Epilepsy type: unspecified Intractability: not intractable Status epilepticus: without status epilepticus Qualified Code(s): G40.909 - Epilepsy, unspecified, not intractable, without status epilepticus Plan: Continue Keppra. Follow-up with Neurology. Orders: Orders XR hand RT 2V Today M79.641 - Pain in right hand NE nerve conduction velocity Today R20.2 - Paresthesia of skin Referrals Orthopedics Referral M79.641 - Pain in right hand Coding Level of Care Code Est Pt Level 4 (14549) Complex EM visit Add On G2211 Diagnoses Right hand pain M79.641 Paresthesias in right hand R20.2 Thalassemia, unspecified type D56.9 Thalassemia type: unspecified type Nonintractable epilepsy without status epilepticus, unspecified epilepsy type G40.909 Epilepsy type: unspecified Intractability: not intractable Status epilepticus: without status epilepticus Additional Codes ELMER-7 Assessment Billing - ELMER-7 Assessment Tool: ELMER-7 Assessment 29357 ([id number]) Time Spent (min) 20
[2023-10-20 09:49] VITALS: BP 96/60; BMI 18.3
== END 2023-10-20 10:29 | disposition home or self-care (01) ==
PROVIDERS: PCP Internal Medicine; Visit Provider Internal Medicine
DX: M79.641 Pain in right hand (principal); R20.2 Paresthesia of skin; D56.9 Thalassemia, unspecified; G40.909 Epilepsy, unspecified, not intractable, without status epilepticus
CPT/HCPCS: 99214; G2211

== ENCOUNTER 2023-10-20 10:38 | Outpatient (REF) | payer OTHER, SELFPAY ==
--- NOTE | ~2023-10-20 | XR_ITS ---
EXAMINATION: XR HAND, RIGHT CLINICAL INFORMATION: Right hand pain. COMPARISON: None available. TECHNIQUE: PA, lateral, and oblique views of the right hand. FINDINGS: Small chronic osseous fragment at the tip of the ulnar styloid, most likely corresponding to an old avulsion injury. No acute fractures. Bone mineralization is normal. Joint spaces are well-preserved. No erosions or periostitis. XR/XR hand RT 2V IMPRESSION: 1. No acute osseous findings. 2. Small chronic osseous fragment at the tip of the ulnar styloid, most likely correspond to an old avulsion injury. Electronically signed by: Eliazar Hickman MD 11/12/2023 10:10 PM EDT
== END 2023-10-20 10:39 | disposition home or self-care (01) ==
LOC: HO.XRAY 10:38
PROVIDERS: PCP Internal Medicine; Visit Provider Internal Medicine
DX: M79.641 Pain in right hand (principal)
CPT/HCPCS: 73120

== ENCOUNTER 2023-11-09 08:40 | Outpatient (REF) | payer OTHER, SELFPAY ==
--- NOTE | 2023-11-09 08:43 | EMG_ITS ---
Right median and ulnar motor and sensory studies were performed. Right radial and median and lateral antecubital brachial sensory studies were performed. The patient refused to have needle examination. IMPRESSION: Mild right median neuropathy across carpal tunnel. Without EMG, radiculopathy could not be ruled out. MD CORRINE Green/MARTIN / [id number]
== END 2023-11-09 08:41 | disposition home or self-care (01) ==
LOC: HO.NEURO 08:40
PROVIDERS: PCP Internal Medicine; Visit Provider Internal Medicine
DX: R20.2 Paresthesia of skin (principal)
CPT/HCPCS: 95910

== ENCOUNTER 2024-09-26 10:38 | Outpatient (REF) | payer OTHER, SELFPAY | END 2024-09-26 10:39 | disposition home or self-care (01) | LOC: HO.MAMMO 10:38 | PROVIDERS: PCP Internal Medicine; Visit Provider Internal Medicine | DX: Z12.31 Encounter for screening mammogram for malignant neoplasm of breast (principal) | CPT/HCPCS: 77063; 77067 ==

== ENCOUNTER → 2024-09-26 11:00 | Outpatient (BNV) | payer OTHER, SELFPAY | PROVIDERS: PCP Internal Medicine; Visit Provider Internal Medicine | DX: Z12.31 Encounter for screening mammogram for malignant neoplasm of breast (principal) | CPT/HCPCS: 77063; 77067 ==

== ENCOUNTER 2024-10-12 08:28 | Outpatient (REF) | payer OTHER, SELFPAY ==
--- NOTE | ~2024-10-12 | US_ITS ---
EXAMINATION: MM DIAGNOSTIC DIGITAL BREAST TOMOSYNTHESIS, BILATERAL Limited left breast ultrasound. CLINICAL INFORMATION: Call back from screening for asymmetry in the superior left breast on MLO view. COMPARISON: Mammography: [facility] on PACS. TECHNIQUE: Digital breast tomosynthesis is performed in both the craniocaudal and mediolateral oblique views along with computer-aided detection (CAD). Synthesized 2D images are generated from the tomosynthesis. FINDINGS: The breasts are heterogeneously dense, which may obscure small masses (ACR BI-RADS breast composition Category c). Asymmetry in the superior left breast on MLO view does not persist on additional imaging projections and likely represented overlapping breast tissue. There are no significant masses, abnormal calcifications, or other abnormalities. Targeted color Doppler ultrasound scanning in the upper central upper outer breast from 12-3 o'clock demonstrates normal fibroglandular breast tissue. No sonographic abnormal finding is seen. US/US breast LT limited mamm only IMPRESSION: No mammographic evidence of malignancy. ASSESSMENT: BI-RADS BI-RADS 1 - Negative RECOMMENDATION: 1 year F/U Results were provided to the patient at time of visit by the technologist. This patient's information was entered into a reminder system with a target due date for their next mammogram. Electronically signed by: Tootie Polanco DO 10/12/2024 10:06 AM EDT
== END 2024-10-12 08:29 | disposition home or self-care (01) ==
LOC: HO.MAMMO 08:28
PROVIDERS: PCP Internal Medicine; Visit Provider Internal Medicine
DX: Z12.31 Encounter for screening mammogram for malignant neoplasm of breast (principal); N64.89 Other specified disorders of breast
CPT/HCPCS: 76642; 77061; 77065

== ENCOUNTER → 2024-10-12 08:30 | Outpatient (BNV) | payer OTHER, SELFPAY | PROVIDERS: PCP Internal Medicine; Visit Provider Internal Medicine | DX: R92.8 Other abnormal and inconclusive findings on diagnostic imaging of breast (principal) | CPT/HCPCS: 76642; 77065; G0279 ==

== ENCOUNTER 2024-11-02 09:39 | Outpatient (REF) | payer OTHER, SELFPAY | END 2024-11-02 09:40 | disposition home or self-care (01) | LOC: HO.LNP 09:39 | PROVIDERS: PCP Internal Medicine; Visit Provider Obstetrics & Gynecology | DX: Z01.419 Encounter for gynecological examination (general) (routine) without abnormal findings (principal); Z12.11 Encounter for screening for malignant neoplasm of colon; R87.610 Atypical squamous cells of undetermined significance on cytologic smear of cervix (ASC-US); R87.810 Cervical high risk human papillomavirus (HPV) DNA test positive | CPT/HCPCS: 87626; 88175; 99396 ==

== ENCOUNTER 2024-11-02 09:39 | Outpatient (AMB) | payer OTHER, SELFPAY ==
--- NOTE | 2024-11-02 09:43 | MHC.OFFVIS ---
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 No complaints. Last Pap/HPV was ascus/HPV positive, colpo biopsy ECC was negative Last Mammogram was BI-RADS 1 in 10/23 No previous screening Colonoscopy [facility] Medical History Paresthesia of skin Tension headache Underweight Anemia Migraine Dysplasia of cervix, low grade (SHIN 1) Anemia Epilepsy Asthma Surgical History No pertinent past surgical history Family History Father Prostate cancer Mother Anemia Maternal Grandmother Diabetes Maternal Grandfather No problems noted. Paternal Grandmother No problems noted. Social History Household Members: Children Housing: Apartment Alcohol intake: never Patient Tobacco Use Status: Never used Tobacco e-Cigarette/Vaping Use: Never Used Second Hand Smoke Exposure: No service: No Current occupational status: disabled Cognitive needs: No Hearing needs: No Vision needs: Yes Female Reproductive History Menstrual Age of Menarche: 15 Total pregnancies: 1 Full term: 1 Date of last pap smear: 05/17/23 (+HPV) Date of Mammogram: 10/12/24 (BI RAD 1) Review of Systems Const All systems reviewed & are unremarkable except as noted in HPI and below Card Reports as per HPI Resp Reports as per HPI GI Reports as per HPI and Reports no additional complaints Reports as per HPI Physical Exam Vital Signs: Last Vital Signs BP 98/62 11/02/24 09:44 BMI result Body Mass Index 19.0 Const General: cooperative, healthy appearing and comfortable Chest Chest palpation & inspection: normal inspection of the chest and normal palpation of entire chest wall Breast/axilla inspection: normal inspection of the breasts and normal inspection of the axillae Breast/axilla palpation: normal palpation of the breasts, normal palpation of the axillae and no axillary lymphadenopathy Resp Effort & Inspection: normal respiratory effort Auscultation: clear to auscultation bilaterally Percussion: percussion normal Cardio Palpation: normal PMI Rate: regular rate Rhythm: regular rhythm Heart sounds: no murmurs and no rubs Peripheral pulses: Peripheral pulses 2+ throughout GI Inspection: Yes normal to inspection Palpation (GI): Soft to palpation, nontender, no guarding, not rigid and No hepatosplenomegaly present Percussion: Yes normal to percussion Auscultation: normal bowel sounds Rectal Exam - Female: deferred General: Yes bladder normal to palpation External Female Exam: No lesion Speculum Exam - Vagina: normal appearance of the vagina, normal palpation, normal vaginal discharge and not erythematous Speculum Exam - Cervix: normal appearance of the cervix and normal palpation Bimanual exam- vagina & uterus: normal bimanual exam, normal palpation, uterine size normal, bladder normal to palpation, consistency normal and normal palpation Bimanual Exam- Adnexa, other: normal adnexae, no masses and no tenderness Assessment & Plan Assessment & Plan (1) Well woman exam: Comment: SHIN 1 in 09/19 Code(s): Z01.419 - Encounter for gynecological examination (general) (routine) without abnormal findings Category: Medical Plan: Co testing done. Counseled the patient about the recommended dietary allowance of 1200 mg of Calcium & 600 IU of vitamin D. Instructions given to patient to schedule next screening Mammogram in 10/24. The patient was referred to GI for screening colonoscopy . The patient was instructed to perform monthly self-breast exams and schedule annual exam in a year. All questions answered and the patient verbalized understanding. Orders: Referrals Gastroenterology Referral Z12.11 - Encounter for screening for malignant neoplasm of colon Coding Level of Care Code Est Pt Prev Care 40-64y(54832) Diagnoses Well woman exam Z01.419
[2024-11-02 09:44] VITALS: BP 98/62; BMI 19.0
== END 2024-11-02 10:16 | disposition home or self-care (01) ==
LOC: HO.HWS 09:39
PROVIDERS: PCP Internal Medicine; Visit Provider Obstetrics & Gynecology
DX: Z01.419 Encounter for gynecological examination (general) (routine) without abnormal findings (principal)
CPT/HCPCS: 99396; 99459

== ENCOUNTER 2024-12-29 08:31 | Outpatient (AMB) | payer OTHER, SELFPAY ==
--- NOTE | 2024-12-29 08:34 | MHC.OFFVIS ---
Intake Visit Reasons: Follow up Record Tabulating Clerk Required: Yes Record Tabulating Clerk Name: #[id number] Allergies No Known Allergies Allergy (Verified 12/29/24 08:35) Medication List - Last Reconciled 12/29/24 by Shani Serrano CNP amitriptyline 50 mg PO BEDTIME 90 days levetiracetam 500 mg PO BID 90 days HPI Comments Details: She was doing okay. She was taking levetiracetam twice a day. No seizures. Headaches are okay with amitriptyline. No side effects with medications. Sleep was okay. Last Sz 07/19/16 with 4 min gen T/C Sz with foaming at mouth. Had forgotten to take her meds for the whole day. Last episode before was in 2016. She's had 2 previous episodes like this > 12 years ago. Prior to the symptoms she was acting a little dazed according to her candy attendant. No history of seizures as a child. She has a long history of anemia, details of which are unclear. She previously had chronic frequent headaches, most consistent with muscle tension headache for several years. They were occurring 3-4 days a week not relieved by OTC drugs. [facility] Medical History (Updated 12/29/24 @ 08:37 by Shani Serrano CNP) Paresthesia of skin Tension headache Underweight Anemia Migraine Dysplasia of cervix, low grade (SHIN 1) Anemia Epilepsy Asthma Surgical History No pertinent past surgical history Family History Father Prostate cancer Mother Anemia Maternal Grandmother Diabetes Maternal Grandfather No problems noted. Paternal Grandmother No problems noted. Social History Household Members: Children Housing: Apartment Alcohol intake: never Patient Tobacco Use Status: Never used Tobacco e-Cigarette/Vaping Use: Never Used Second Hand Smoke Exposure: No service: No Current occupational status: disabled Cognitive needs: No Hearing needs: No Vision needs: Yes Female Reproductive History Menstrual Age of Menarche: 15 Review of Systems Const Denies chills, Denies daytime sleepiness, Denies difficulty sleeping, Denies fatigue, Denies fever(s), Denies frequent falls, Reports headache(s), Denies increased appetite, Denies poor appetite, Denies snoring, Denies weakness, Denies weight gain and Denies weight loss Eyes Denies loss of vision ENT Denies vertigo, Reports dizziness, Reports headache(s) and Denies neck pain Card Denies chest pain at rest, Denies chest pain with activity, Denies syncope, Denies leg edema, Denies palpitations, Denies dyspnea and Denies dyspnea on exertion Resp Denies cough, Denies dyspnea, Denies dyspnea on exertion and Denies snoring GI Denies abdominal pain, Denies constipation, Denies heartburn, Denies diarrhea and Denies nausea Denies urinary frequency, Denies urinary incontinence and Denies urinary urgency Musc Denies abnormal gait, Denies back pain, Denies myalgias, Denies arthralgias, Denies neck pain, Denies numbness and Denies tingling Neuro Denies abnormal gait, Denies vertigo, Reports dizziness, Denies syncope, Denies frequent falls, Reports headache(s), Denies lack of coordination, Denies loss of vision, Denies memory loss, Denies numbness, Denies Other visual disturbances, Denies restless legs, Denies seizure-like activity, Denies tingling, Denies paresthesias, Denies tremor(s) and Denies weakness Psych Denies anxiety, Denies depression, Denies auditory hallucinations, Denies memory loss and Denies visual hallucinations Endo Denies fatigue and Denies palpitations Physical Exam Const Other: General Appearance:? normal, in no acute distress. Heart:? S1, S2 normal, no murmurs. Lungs:? clear anteriorly and posteriorly. Musculoskeletal:? normal. Extremities:? no edema. Psych:? alert, oriented, cognitive function intact, cooperative with exam. Neuro Other: Abnormal Neurological Findings:?none.? Mental Status: alert and oriented X 3. Normal attention, orientation, memory, and affect. Cranial Nerves: Pupils are equal, round, and reactive to light. External ocular muscles are intact. Visual barreto are full, no ptosis. Face is symmetrical, no facial weakness or droop. Facial sensations are normal. Tongue protrudes in midline. Palate elevates symmetrically. Shoulder shrugging is normal Motor Examination: Normal muscle tone, bulk and strength. No atrophy or fasciculations. No drift of the extended upper extremities. DTR 2+. Plantars are flexor. Sensory Exam: Normal light touch, temperature, pinprick, vibration, and joint-position sensations. Rhomberg sign is absent. Coordination: No ataxia. No titubation. Gait Exam: Within normal limits. Cerebellar Signs: [id number] is okay. Extrapyramidal System: No tremor, rigidity with normal facial expressions. No bradykinesia. No bradyphrenia. Normal arm swing and posture. No propulsion or retropulsion. Speech: Normal. Results Reviewed Results Reviewed: 05/22/16. EEG: Abnormal EEG with paroxysmal features of bifrontal high voltage sharp discharges consistent with bifrontal cerebral irritability 05/22/16 MRI brain shows white matter disease ? demyelinating. 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 Assessment & Plan Assessment & Plan (1) Seizure: Code(s): R56.9 - Unspecified convulsions Category: Medical Plan: Continue levetiracetam 500mg 1 tablet twice a day. (2) Tension headache: Code(s): G44.209 - Tension-type headache, unspecified, not intractable Category: Medical Plan: Continue amitriptyline 50mg 1 tablet at bedtime. (3) Syringomyelia: Code(s): G95.0 - Syringomyelia and syringobulbia Category: Medical (4) Demyelinating disease of central nervous system, unspecified: Code(s): G37.9 - Demyelinating disease of central nervous system, unspecified Category: Medical Plan . Medications: Refilled amitriptyline 50 mg PO BEDTIME 90 tabs 1RF 90 days levetiracetam 500 mg PO BID 180 tabs 1RF 90 days Coding Level of Care Code Est Pt Level 4 (50757) Diagnoses Seizure R56.9 Tension headache G44.209 Syringomyelia G95.0 Demyelinating disease of central nervous system, unspecified G37.9
== END 2024-12-29 08:49 | disposition home or self-care (01) ==
LOC: HO.HSM 08:31
PROVIDERS: PCP Internal Medicine; Visit Provider Registered Nurse
DX: R56.9 Unspecified convulsions (principal); G44.209 Tension-type headache, unspecified, not intractable; G95.0 Syringomyelia and syringobulbia; G37.9 Demyelinating disease of central nervous system, unspecified
CPT/HCPCS: 99214

== ENCOUNTER → 2024-12-29 08:31 | Outpatient (BNVA) | payer OTHER, SELFPAY | PROVIDERS: PCP Internal Medicine; Visit Provider Registered Nurse | DX: G44.209 Tension-type headache, unspecified, not intractable (principal); G37.9 Demyelinating disease of central nervous system, unspecified; G95.0 Syringomyelia and syringobulbia; R56.9 Unspecified convulsions | CPT/HCPCS: 99212 ==